=== PATIENT | female | born 1970 | race Caucasian/White ===

== ENCOUNTER 2021-10-02 04:24 | Emergency (ER) | payer OTHER | END 2021-10-02 06:47 | disposition home or self-care (01) | LOC: FER 04:24 | DX: M54.42 Lumbago with sciatica, left side (principal); Z88.0 Allergy status to penicillin; Z88.1 Allergy status to other antibiotic agents; Z88.2 Allergy status to sulfonamides; Z88.5 Allergy status to narcotic agent | CPT/HCPCS: J1170; J1885; J2405; J2800; J7050 ==

== ENCOUNTER 2022-01-07 03:04 | Emergency (ER) | payer OTHER ==
[2022-01-07] MEDS ORDERED: NORCO 5-325 TA1 EACH PO (03:59)
== END 2022-01-07 04:10 | disposition home or self-care (01) ==
LOC: FER 03:04
DX: M54.42 Lumbago with sciatica, left side (principal); I10 Essential (primary) hypertension; Z88.0 Allergy status to penicillin; Z88.2 Allergy status to sulfonamides; Z88.5 Allergy status to narcotic agent; Z88.1 Allergy status to other antibiotic agents
CPT/HCPCS: 99283